=== PATIENT | male | born 1970 | race Native Hawaiian/Other Pacific Islander ===

== ENCOUNTER 2022-10-11 10:13 | Outpatient (CLI) | payer BC, SELFPAY | END 2022-10-11 10:14 | disposition home or self-care (01) | PROVIDERS: PCP Family Medicine; Visit Provider Family Medicine | DX: Z11.3 Encounter for screening for infections with a predominantly sexual mode of transmission (principal); R79.89 Other specified abnormal findings of blood chemistry | CPT/HCPCS: 0353U; 86592; 86703; 86706; 86803; 87340 ==

== ENCOUNTER 2022-11-05 15:36 | Outpatient (CLI) | payer BC, SELFPAY | END 2022-11-05 15:37 | disposition home or self-care (01) | PROVIDERS: PCP Family Medicine; Visit Provider Emergency Medicine | DX: E78.5 Hyperlipidemia, unspecified (principal); Z11.3 Encounter for screening for infections with a predominantly sexual mode of transmission; Z13.1 Encounter for screening for diabetes mellitus | CPT/HCPCS: 80053; 80061 ==